=== PATIENT | female | born 1980 | race Caucasian/White ===

== ENCOUNTER → 2022-12-24 15:23 | Outpatient (BNVA) | payer BC, SELFPAY | PROVIDERS: Visit Provider Registered Nurse Neonatal Intensive Care | DX: M25.552 Pain in left hip (principal) | CPT/HCPCS: 73502 ==

== ENCOUNTER → 2023-01-17 09:59 | Outpatient (BNVA) | payer BC, MEDICAID, SELFPAY | PROVIDERS: PCP Family Medicine; Visit Provider Family Medicine | DX: D50.9 Iron deficiency anemia, unspecified (principal) | CPT/HCPCS: 80053; 81000; 82728; 83550; 84439; 84443; 85025 ==

== ENCOUNTER 2023-02-24 10:30 | Oncology outpatient (recurring) (ONCR) | payer BC, MEDICAID, SELFPAY ==
[2023-02-24 11:10] VITALS: BP 112/70; PULSE 80; RESP 18; TEMP 36.6; O2SAT 99
[2023-02-24] MEDS: sodium chloride 0.9% 250 ML 50 ML IV (11:20)
[2023-02-24] MEDS: iron sucrose 200 MG in sodium chloride 0.9% (100 ml) 100 ML 220 MG IV (11:23)
[2023-02-24 12:35] VITALS: BP 115/65; PULSE 63; RESP 18; TEMP 36.4; O2SAT 98
== END 2023-02-24 23:59 | disposition home or self-care (01) ==
PROVIDERS: PCP Family Medicine; Visit Provider Family Medicine
DX: D50.9 Iron deficiency anemia, unspecified (principal)
CPT/HCPCS: 96365; J1756; J7050

== ENCOUNTER 2023-03-10 10:30 | Oncology outpatient (recurring) (ONCR) | payer BC, MEDICAID, SELFPAY ==
[2023-03-03 10:23] VITALS: BP 122/80; PULSE 83; RESP 16; TEMP 36.7; O2SAT 99
[2023-03-03] MEDS: sodium chloride 0.9% 250 ML 75 ML IV (10:45)
[2023-03-03] MEDS: iron sucrose 200 MG in sodium chloride 0.9% (100 ml) 100 ML 220 MG IV (10:46)
[2023-03-03 11:31] VITALS: BP 97/67; PULSE 71; RESP 16; TEMP 36.6; O2SAT 99
[2023-03-10 11:20] VITALS: BP 107/69; PULSE 74; RESP 18; TEMP 36.4; O2SAT 99
[2023-03-10] MEDS: sodium chloride 0.9% 250 ML 50 ML IV (11:42)
[2023-03-10] MEDS: iron sucrose 200 MG in sodium chloride 0.9% (100 ml) 100 ML 220 MG IV (11:45)
[2023-03-10 12:35] VITALS: BP 106/62; PULSE 67; RESP 18; TEMP 36.4; O2SAT 100
== END 2023-03-27 23:59 | disposition home or self-care (01) ==
PROVIDERS: PCP Family Medicine; Visit Provider Family Medicine
DX: D50.8 Other iron deficiency anemias (principal)
CPT/HCPCS: 96365; J1756; J7050

== ENCOUNTER → 2023-03-28 16:15 | Outpatient (BNVA) | payer BC, MEDICAID, SELFPAY | PROVIDERS: PCP Family Medicine; Visit Provider Nurse Practitioner Family | DX: R06.00 Dyspnea, unspecified (principal) | CPT/HCPCS: 71046 ==

== ENCOUNTER 2023-10-26 12:11 | Outpatient (CLI) | payer BC, MEDICAID, SELFPAY ==
--- NOTE | 2023-10-26 12:18 | XR_ITS ---
WS: [id number] Exam: XR hand LT min 3V* [id number] Date/Time of Exam: 10/26/2023 12:18 PM Reason For Exam: Left hand contusion No fracture or dislocation. The joints are preserved. No soft tissue foreign bodies. IMPRESSION: 1. No acute fracture or other significant finding.
== END 2023-10-26 12:12 | disposition home or self-care (01) ==
LOC: RAD 12:11
PROVIDERS: PCP Family Medicine; Visit Provider Registered Nurse Neonatal Intensive Care
DX: S60.222A Contusion of left hand, initial encounter (principal); X58.XXXA Exposure to other specified factors, initial encounter
CPT/HCPCS: 73130

== ENCOUNTER 2023-11-15 12:43 | Outpatient (CLI) | payer BC, MEDICAID, SELFPAY ==
--- NOTE | 2023-11-15 12:50 | XR_ITS ---
WS: [id number] Left hand, 3 views, 11/15/2023 Clinical Data: 1st metacarpal injury Comparison: Left hand, 10/26/2023 Findings: No fractures or dislocations are seen. The soft tissues are unremarkable. The joint spaces are normal Impression: Negative left hand.
== END 2023-11-15 12:44 | disposition home or self-care (01) ==
LOC: RAD 12:45
PROVIDERS: PCP Family Medicine; Visit Provider Family Medicine
DX: M79.642 Pain in left hand; R30.0 Dysuria
CPT/HCPCS: 73130; 81000

== ENCOUNTER → 2024-03-28 14:29 | Outpatient (BNVA) | payer BC, MEDICAID, SELFPAY | PROVIDERS: PCP Family Medicine; Visit Provider Family Medicine | DX: D50.8 Other iron deficiency anemias (principal) | CPT/HCPCS: 80053; 82728; 83540; 83550; 85025 ==

== ENCOUNTER 2024-04-22 10:00 | Oncology outpatient (recurring) (ONCR) | payer BC, MEDICAID, SELFPAY ==
--- NOTE | 2024-04-03 10:00 | US_ITS ---
WS: [id number] RENAL ULTRASOUND HISTORY: bilateral kidney pain COMPARISON: None available. TECHNIQUE: 2-D and color Doppler imaging of the kidney submitted. Right kidney: 10.7 cm x 4.4 cm x 4.1 cm. Cortex: 0.9 cm Mild diffuse cortical thinning. Cyst in the mid kidney measures 1.9 x 1.7 x 1.5 cm. No hydronephrosis . Left kidney: 11.7 cm x 6.3 cm x 6.1 cm. Cortex: 1.3 cm Normal size kidney with no hydronephrosis. Tiny cortical cyst mid kidney measures 1.3 x 1.2 x 1.0 cm. Aorta: Normal. Urinary Bladder: Normal distention. US/US renal BI* [id number] IMPRESSION: 1. No renal obstruction. 2. Mild diffuse thinning of the RIGHT renal cortex. 3. Small bilateral simple renal cysts as described above.
[2024-04-22] MEDS: acetaminophen 325 mg Tablet 650 MG PO (11:26)
[2024-04-22] MEDS: sodium chloride 0.9% 500 ML 75 ML IV (11:28)
[2024-04-22] MEDS: diphenhydrAMINE 50 mg/mL SDV 1mL 25 MG IVP (11:51)
[2024-04-22 11:54] VITALS: BP 118/78; PULSE 90; RESP 18; TEMP 36.7; O2SAT 99
[2024-04-22] MEDS: iron dextran 25 MG in SYRINGE 1 EACH 30 MG IVP (12:07)
[2024-04-22] MEDS: iron dextran 975 MG in sodium chloride 0.9% 1,000 ML 250.75 MG IV (13:38)
[2024-04-22 17:05] VITALS: BP 100/65; PULSE 70; RESP 16; TEMP 36.2; O2SAT 94
== END 2024-04-27 23:59 | disposition home or self-care (01) ==
PROVIDERS: PCP Family Medicine; Visit Provider Family Medicine
DX: D50.9 Iron deficiency anemia, unspecified (principal); Z79.899 Other long term (current) drug therapy
CPT/HCPCS: 71046; 76770; 96365; 96366; 96375; J1200; J1750; J7030; J7040

== ENCOUNTER → 2024-04-24 14:27 | Outpatient (BNVA) | payer BC, MEDICAID, SELFPAY | PROVIDERS: PCP Family Medicine; Visit Provider Nurse Practitioner | DX: D50.8 Other iron deficiency anemias (principal) | CPT/HCPCS: 82962 ==

== ENCOUNTER 2024-06-05 11:33 | Emergency (ER) | payer BC, MEDICAID, SELFPAY ==
[2024-06-05 11:37] VITALS: BP 122/70; PULSE 87; RESP 18; TEMP 36.9; O2SAT 99; BMI 32.1
--- NOTE | 2024-06-05 12:35 | USCV_ITS ---
Tawny Mendes Age: 43 Gender: F : 1980 Exam Date: 06/05/2024 13:19 Ordering Phys: Criss Marsh MD Technologist: [place] [facility] [place]: lt leg pain and swelling PROCEDURES: Venous duplex imaging was performed in only the left lower extremity. The following venous structures were evaluated: common femoral vein, profunda vein, proximal portion of the greater saphenous vein, superficial femoral vein, and the popliteal vein. In addition, the posterior tibial and peroneal trunk were evaluated. FINDINGS: Normal 2-D Doppler and augmentation and compressibility throughout the lower extremity venous structures. Additional imaging through the proximal calf veins also reveals no thrombus. Limited evaluation of the greater saphenous vein is patent with no thrombus. CONCLUSIONS No evidence of left lower extremity DVT. Cj Hassan MD (Electronically Signed) Final Date: 05 June 2024 15:03 S
--- NOTE | 2024-06-05 13:02 | ED_ITS ---
HPI - Extremity Problem General: Chief complaint: Extremity Injury, Lower Stated complaint: pain Left leg Time Seen by Provider: 06/05/24 13:01 Source: patient Mode of arrival: ambulatory Limitations: no limitations History of Present Illness: Patient is a 43-year-old female presents to ED today with a complaint of left leg pain over the past 1 to 2 days. She states pain initially started as a heel pain and has now noticed some pain in her calf as well as her upper medial thigh. She was reportedly seen at the walk-in clinic by Dr. Solomon and referred to the emergency department for ultrasound and DVT rule out. Patient does have known varicose veins. She is reportedly scheduled to see a vein clinic next week. She feels like her left lower extremity was swollen recently but feels like this is improved upon presentation to the emergency department. She has no complaints of chest pain, shortness of breath, or difficulty breathing. No previous history of DVT/PE. MD Complaint: extremity pain and extremity swelling Onset (ago): day(s) Pain Consistency: constant Location: left and lower extremity Radiation: none Relieving factors: nothing Exacerbating factors: nothing Associated symptoms: Reports no associated symptoms; Deny chest pain, fever(s) or rash Related Data Home Medications Medication Instructions Recorded Confirmed loratadine 10 mg tablet (Claritin) 10 mg PO DAILY 03/28/24 06/05/24 Previous Rx's Medication Instructions Recorded EpiPen 2-Phil 0.3 mg/0.3 mL 0.3 mg (0.3 mL) IM Q10M PRN 01/17/23 injection, auto-injector anaphylaxis #2 ea (epinephrine) Allergies Allergy/AdvReac Type Severity Reaction Status Date / Time aspirin Allergy ALGY-Anaphy Verified 06/05/24 11:02 laxis iron Allergy ALGY-Difficulty Verified 06/05/24 11:50 Breathing latex Allergy ALGY-Bliste Verified 06/05/24 11:02 r morphine Allergy ALGY-Anaphy Verified 06/05/24 11:02 laxis NSAIDS (Non-Steroidal Allergy ALGY-Anaphy Verified 06/05/24 11:02 Anti-Inflamma laxis shellfish derived Allergy ALGY-Anaphy Verified 06/05/24 11:02 laxis tramadol Allergy ALGY-Anaphy Verified 06/05/24 11:02 laxis Review of Systems Const: Denies: fever(s) Card: Denies: chest pain, palpitations, lightheadedness, syncope or pre- syncope Resp: Denies: dyspnea, wheezing, pain on inspiration or hemoptysis Musc: Reports: extremity pain and extremity swelling; Denies: neck pain, back pain, joint pain or joint swelling Skin/Breast: Denies: rash Neuro: Denies: numbness in extremities, weakness in extremities, sensory changes or difficulty walking [facility] PFSH: Medical History Spider vein of left lower extremity MRSA (methicillin resistant staph aureus) culture positive Pain Medullary sponge kidney Anemia PTSD (post-traumatic stress disorder) TBI (traumatic brain injury) Surgical History H/O knee surgery H/O: Hx of cholecystectomy H/O eye surgery Family History Mother Diabetes Hypertension Father Cancer Social History Smoking and tobacco/nicotine status: unknown if used tobacco/nicotine Quit status (tobacco/nicotine): not considering quitting Second hand smoke exposure: No Alcohol intake: former Substance/Drug Use: never Physical Exam Const: COMMON NORMALS: no acute distress, average body habitus, patient oriented x3, no limitations, healthy appearing, alert and well nourished Resp: COMMON NORMALS: normal respiratory effort and clear to auscultation bilaterally AUSCULTATION: clear to auscultation bilaterally Cardio: COMMON NORMALS: regular rate and regular rhythm RATE: regular rate RHYTHM: regular rhythm Extremity: COMMON NORMALS: capillary refill normal, no joint enlargement, no clubbing, cyanosis or edema and no pedal edema GENERAL: Yes normal exam except as noted LEFT LOWER EXTREMITY: Yes upper leg and Yes lower leg OTHER: I do not appreciate any obvious swelling to the left lower extremity when compared to right. Distal pulses, cap refill, and sensation are all intact. Negative Homans. She does have mild tenderness to palpation of the left calf as well as left popliteal and left medial thigh. Minor varicose veins noted. Neuro: COMMON NORMALS: patient oriented x3, moves all extremities, no focal motor deficits and no sensory deficits noted SENSORIUM/ORIENTATION: Yes alert Skin: COMMON NORMALS: no rashes or lesions noted GENERAL SKIN EXAM: no rashes or lesions noted Course Vital Signs: Vital signs: Vital Signs Temperature 98.5 F 06/05/24 11:37 Pulse Rate 84 06/05/24 14:00 Respiratory Rate 18 06/05/24 14:00 Blood Pressure 123/71 06/05/24 13:30 Pulse Oximetry 98 06/05/24 14:00 Oxygen Delivery Me thod Room Air 06/05/24 14:00 MDM - Extremity (Nontraumatic) Medical Decision Making Prelim U/S report negative for DVT. Patient was instructed to follow-up with her primary care provider for continued evaluation of her leg pain. Medical Records I reviewed the patient's medical records. XR interpretation done by ED provider, pending radiology final review (prelim from US tech negative) Discharge Plan Discharge Patient Disposition: Home Clinical Impression: Acute pain of left lower extremity Condition: Stable Prescriptions: No Action epinephrine [EpiPen 2-Phil] 0.3 mg/0.3 mL auto-injector 0.3 mg IM Q10M PRN (Reason: anaphylaxis) Qty: 2 2RF Rx Instructions: for 2 doses loratadine [Claritin] 10 mg tablet 10 mg PO DAILY Discharge Orders: Discharge ED (Routine); Ordered 06/05/24 Ordered By: Nora Cordova Referrals: Chaitanya Del Cid MD [Primary Care Provider] - Coding Level of Care Code ED Nuclear Waste Management Engineer for Ilana Alarcon
[2024-06-05 13:04] VITALS: BP 123/71; PULSE 85; RESP 16; O2SAT 96
[2024-06-05 13:30] VITALS: BP 123/71; PULSE 81; O2SAT 97
[2024-06-05 14:00] VITALS: PULSE 84; RESP 18; O2SAT 98
[2024-06-05 14:29] VITALS: BP 97/65; PULSE 66; O2SAT 98
== END 2024-06-05 14:30 | disposition home or self-care (01) ==
PROVIDERS: Emergency Provider Physician Assistant; PCP Family Medicine
DX: M79.605 Pain in left leg (principal)
CPT/HCPCS: 93971; 99284

== ENCOUNTER 2024-07-19 09:46 | Outpatient (CLI) | payer BC, MEDICAID, SELFPAY ==
--- NOTE | 2024-07-19 09:56 | USCV_ITS ---
Tawny Mendes Age: 43 Gender: F : 1980 Exam Date: 07/19/2024 10:55 Ordering Phys: Herminia Alvarez Technologist: [place] [facility] [place]: HISTORY: PROCEDURES: FINDINGS: The veins were found to be easily compressible with spontaneous blood flow. Non pulsatile flow pattern. No evidence of any significant venous insufficiency In the small saphenous veins on the left side were not visualized CONCLUSIONS 1. No evidence of DVT or superficial vein thrombosis, in the above- mentioned identifiable veins 2. No significant venous insufficiency 3. Small to medium caliber superficial veins bilaterally 4. The small saphenous veins of the left side were not visualized Dr Sydney Varghese MD [facility] (Electronically Signed) Final Date: 25 July 2024 07:55 S
== END 2024-07-19 09:47 | disposition home or self-care (01) ==
LOC: RAD 09:48
PROVIDERS: PCP Family Medicine; Visit Provider Nurse Practitioner
DX: I83.893 Varicose veins of bilateral lower extremities with other complications (principal)
CPT/HCPCS: 93970

== ENCOUNTER → 2024-08-14 15:53 | Outpatient (BNVA) | payer BC, SELFPAY | PROVIDERS: PCP Family Medicine; Visit Provider Family Medicine | DX: D50.8 Other iron deficiency anemias (principal) | CPT/HCPCS: 82746; 83550; 85025 ==

== ENCOUNTER → 2024-09-13 09:27 | Outpatient (BNVA) | payer BC, SELFPAY | PROVIDERS: PCP Family Medicine; Referring Provider Family Medicine; Visit Provider Nurse Practitioner | DX: M17.12 Unilateral primary osteoarthritis, left knee; M23.52 Chronic instability of knee, left knee; S83.412A Sprain of medial collateral ligament of left knee, initial encounter; X58.XXXA Exposure to other specified factors, initial encounter; Z46.89 Encounter for fitting and adjustment of other specified devices | CPT/HCPCS: 73560; 73565 ==

== ENCOUNTER 2024-11-22 09:30 | Oncology outpatient (recurring) (ONCR) | payer BC, MEDICAID, SELFPAY ==
--- NOTE | 2024-11-22 09:30 | MR_ITS ---
WS: [id number] MRI LEFT KNEE HISTORY: M17.12 - Unilateral primary osteoarthritis, left knee, history of prior meniscal repair. COMPARISON: 09/13/2024 radiograph Anterior cruciate ligament: Intact. Posterior cruciate ligament: Intact. Medial collateral ligament: Intact. Posterior lateral corner structures: Intact. Medial menisci: No acute tear. There is a very tiny defect involving the posterior horn of the medial meniscus with blunting. This may be the site of a prior meniscal repair. Lateral meniscus: Intact. Normal signal, size and shape. Extensor mechanism: Distal quadriceps tendon and patellar tendons are intact. Fluid and soft tissue: No joint effusion. No Camarena's cyst. Osseous and articular structures: Patellofemoral compartment: Normal. Medial compartment: Mild narrowing of the medial compartment. No fracture or marrow edema. Lateral compartment: Mild narrowing with no fracture or marrow edema. Cartilage is preserved. Small amount of fluid along the popliteus tendon. No tear identified. MR/MR knee LT wo con* [id number] IMPRESSION: 1. No ACL or acute meniscal tear. 2. Small defect posterior horn of the medial meniscus may be the site of the p rior meniscal repair. 3. No marrow edema or fracture.
== END 2024-11-25 23:59 | disposition home or self-care (01) ==
LOC: RAD 11-23 → ONCMED 11-25 09:04
PROVIDERS: PCP Family Medicine; Visit Provider Nurse Practitioner
DX: Z53.9 Procedure and treatment not carried out, unspecified reason; M17.12 Unilateral primary osteoarthritis, left knee; M23.50 Chronic instability of knee, unspecified knee
CPT/HCPCS: 73721

== ENCOUNTER 2024-12-06 08:51 | Oncology outpatient (recurring) (ONCR) | payer BC, MEDICAID, SELFPAY ==
[2024-12-06 09:26] VITALS: BP 124/76; PULSE 75; RESP 16; TEMP 36.7; O2SAT 98
[2024-12-06] MEDS: ferric derisomaltose 1,000 MG in sodium chloride 0.9% (100 ml) 100 ML 330 MG IV (10:13)
[2024-12-06 11:14] VITALS: BP 117/77; PULSE 77; RESP 16; TEMP 36.5; O2SAT 99
== END 2024-12-25 23:59 | disposition home or self-care (01) ==
LOC: ONCMED 08:51
PROVIDERS: PCP Family Medicine; Visit Provider Nurse Practitioner
DX: D50.9 Iron deficiency anemia, unspecified (principal); Z79.899 Other long term (current) drug therapy
CPT/HCPCS: 96365; J1437

== ENCOUNTER → 2025-03-31 11:04 | Outpatient (BNVA) | payer BC, MEDICAID, SELFPAY | PROVIDERS: PCP Family Medicine; Visit Provider Nurse Practitioner | DX: M16.11 Unilateral primary osteoarthritis, right hip (principal) | CPT/HCPCS: 73502 ==

== ENCOUNTER 2025-03-31 20:24 | Emergency (ER) | payer BC, MEDICAID, SELFPAY ==
--- OUTSIDE RECORDS SUMMARY | 2024-05-31 08:42 | XMS_ITS | Continuity of Care Document ---
Author Name [facility] Organization [facility] Care Team Providers Care Detonator Assembler Name Role Phone [facility] Unavailable Unavailable Problems Combined list of problems from [facility] and [facility] facilities. It does not include entries that were removed or entered in error. Problem Status Onset Date Problem Type Date of Resolution Comments Source Diagnosis: ICD-10-CM Z71.89 Other specified counseling Active Diagnosis [facility] Allergies, Adverse Reactions, Alerts Combined list of allergies from [facility] and [facility] facilities. It does not include entries that were removed or entered in error. Substance Category Reaction Severity Reaction type Status Date Reported Comments Source ASPIRIN RELATED MEDICATIONS Propensity to adverse reactions to drug (finding) Anaphylaxis active 2 [facility] LATEX GLOVE Propensity to adverse reactions to drug (finding) Eruption active 2 [facility] MORPHINE Propensity to adverse reactions to drug (finding) Anaphylaxis active 2 [facility] NONSTEROIDAL ANTI-INFLAMM ATORY Propensity to adverse reactions to drug (finding) Anaphylaxis active 2 [facility] SERTRALINE Propensity to adverse reactions to drug (finding) Syncope active 2 [facility] SHELLFISH Propensity to adverse reactions to food (finding) Anaphylaxis active 2 [facility] TRAMADOL Propensity to adverse reactions to drug (finding) Dyspnea active 2 [facility] Encounters Combined list of: 1) Encounters from [facility] facilities going backup to the last 18 months, not all [place] inpatient encounters are included; 2) Encounters from the [facility] facilities going backup to 280 months. Location Location Details Encounter Type Encounter Number Reason For Visit Attending Provider ADM Date DC Date Status Disposition Source [facility] HC PRO PHONE CALL 21-30 MIN [id number] Diagnos is: ICD-10- CM Z71.89 Other specifi ed credit counselor ing CON COLON 04/26 [facility] Outpatient Encounter [id number] CON COLON 05/31 [facility]
[2025-03-31 20:26] VITALS: BP 137/69; PULSE 101; RESP 16; TEMP 36.6; O2SAT 99
--- NOTE | 2025-03-31 20:41 | W.ED.ALLEREA ---
HPI - Allergic Reaction General: Chief complaint: Allergic Reaction Stated complaint: Allergic Reaction Time Seen by Provider: 03/31/25 20:34 History of Present Illness: HPI narrative: Patient is a 44-year-old female that presented to ED with allergic reaction. He took her first dose of meloxicam at 3 PM today, and over the course of the last 3 hours has noted increasing itching to her face, and the feeling that her tongue is thicker. She is swallowing and talking without issues. Denies shortness of breath. She did immediately take a Claritin/loratidine at home. She does have an EpiPen but did not administer it, notes that it was . Her itching is included to the face only. Related Data Home Medications ?Medication ?Instructions ?Recorded ?Confirmed loratadine 10 mg tablet (Claritin) 10 mg PO DAILY 03/28/24 03/31/25 albuterol sulfate 90 mcg/actuation 2 puff inhalation Q6H PRN 08/12/24 03/31/25 aerosol inhaler Previous Rx's ?Medication ?Instructions ?Recorded EpiPen 2-Phil 0.3 mg/0.3 mL 0.3 mg (0.3 mL) IM Q10M PRN 01/17/23 injection, auto-injector anaphylaxis #2 ea (epinephrine) fluticasone propionate 50 1 spray intranasal BID PRN nasal 08/31/24 mcg/actuation nasal congestion #16 mL spray,suspension (Allergy Relief (fluticasone)) levocetirizine 5 mg tablet 5 mg PO DAILY PRN congestion #60 08/31/24 tabs left hinged knee brace #1 ea 09/13/24 lorazepam 1 mg tablet 1 mg PO .COMPLEX PRN anxiety #2 10/29/24 tabs epinephrine 0.3 mg/0.3 mL 0.3 mg (0.3 mL) IM Q10M PRN 03/31/25 injection, auto-injector (EpiPen anaphylaxis #2 ea 2-Phil) famotidine 40 mg tablet 40 mg PO BID #14 tabs 03/31/25 meloxicam 7.5 mg tablet 7.5 mg PO DAILY #30 tabs 03/31/25 methylprednisolone 4 mg tablets in See Rx Instructions PO .COMPLEX 03/31/25 a dose pack (Medrol (Phil)) #21 ea Allergies Allergy/AdvReac Type Severity Reaction Status Date / Time iron (From Venofer) Allergy Unknown Unknown Verified 03/31/25 20:31 iron dextran complex (From Allergy Unknown Unknown Verified 03/31/25 20:31 Infed) aspirin Allergy ALGY-Anaphy Verified 03/31/25 20:31 laxis Iodinated Contrast Media Allergy ALGY-Anaphy Verified 03/31/25 20:31 laxis latex Allergy ALGY-Bliste Verified 03/31/25 20:31 r meloxicam Allergy ALGY-Anaphy Verified 03/31/25 20:47 laxis morphine Allergy ALGY-Anaphy Verified 03/31/25 20:31 laxis NSAIDS (Non-Steroidal Allergy ALGY-Anaphy Verified 03/31/25 20:31 Anti-Inflamma laxis shellfish derived Allergy ALGY-Anaphy Verified 03/31/25 20:31 laxis tramadol Allergy ALGY-Anaphy Verified 03/31/25 20:31 laxis Review of Systems Const: Denies: fever(s) or chills Eyes: Denies: change in vision or blurry vision ENMT: Reports: swelling of lips/tongue; Denies: throat pain, odynophagia or mouth pain Card: Denies: chest pain or palpitations Resp: Denies: dyspnea, productive cough or non-productive cough : Denies: flank pain or difficulty voiding Musc: Denies: neck pain or back pain Skin/Breast: Reports: pruritus and erythema Neuro: Denies: headache(s) or numbness in extremities Rodriguez/Lymph: Denies: easy bruising or easy bleeding PFS ED PFSH: Medical History (Updated 03/31/25 @ 20:50 by MANN Mcclain) Tear of meniscus of left knee Psychiatric care Spider vein of left lower extremity MRSA (methicillin resistant staph aureus) culture positive Pain Medullary sponge kidney Anemia PTSD (post-traumatic stress disorder) TBI (traumatic brain injury) Surgical History H/O knee surgery H/O: Hx of cholecystectomy H/O eye surgery Family History Mother Diabetes Hypertension Father Cancer Social History Smoking and tobacco/nicotine status: current every day tobacco/nicotine user cigarettes [ Other cigarette details: 3/4 PPD, 15PY (1/2 PPD avg)] Quit status (tobacco/nicotine): not considering quitting Second hand smoke exposure: No Alcohol intake: former Substance/Drug Use: never Physical Exam Const: COMMON NORMALS: patient oriented x3 HENMT: COMMON NORMALS: normocephalic HEAD & SCALP: normocephalic Neck/C-Spine: COMMON NORMALS: full ROM, no lymphadenopathy and supple Resp: COMMON NORMALS: normal respiratory effort, No retractions and clear to auscultation bilaterally AUSCULTATION: clear to auscultation bilaterally Cardio: COMMON NORMALS: regular rate and regular rhythm RATE: regular rate RHYTHM: regular rhythm GI: COMMON NORMALS: Normal to inspection, nondistended, normoactive bowel sounds present and Soft to palpation PALPATION: Yes Soft to palpation : COMMON NORMALS: Yes no CVA tenderness BLADDER/KIDNEY EXAM: Yes no CVA tenderness Back/Pelvis: COMMON NORMALS: no CVA tenderness Extremity: COMMON NORMALS: normal to inspection, full ROM and capillary refill normal Neuro: COMMON NORMALS: patient oriented x3, CN's II-XII intact bilaterally and moves all extremities Skin: GENERAL SKIN EXAM: erythema (face) Course Vital Signs: Vital signs: Vital Signs Temperature 97.9 F 03/31/25 20:26 Pulse Rate 101 H 03/31/25 20:26 Respiratory Rate 16 03/31/25 20:26 Blood Pressure 137/69 03/31/25 20:26 Pulse Oximetry 99 03/31/25 20:26 Oxygen Delivery Me thod Room Air 03/31/25 20:26 MDM - Allergic Reaction Medical Decision Making Patient is 44-year-old female that took her first meloxicam at 1500 today, and started having allergic reaction approximately 2 hours after this. She took a Claritin at home, which seemed to help the reaction, however came to the ED for further evaluation. She has some redness around her bilateral cheeks, feels like her tongue is wider, however this is not appreciated on physical examination other than her cheek redness. She is not having any speech impediments. Her lungs are clear. EpiPen has been sent to the pharmacy, she has been given famotidine, prednisone here. She has been advised to take Benadryl if needed as well. Patient has an aversion to IM use, therefore would utilize p.o. since patient was speaking full sentences. No radiology studies performed this visit Discharge Plan Discharge Patient Disposition: Home Clinical Impression: Allergic reaction Qualifiers: Encounter type: initial encounter Qualified Code(s): T78.40XA - Allergy, unspecified, initial encounter Condition: Stable Prescriptions: New methylprednisolone [Medrol (Phil)] 4 mg tablets,dose pack See Rx Instructions .ROUTE .COMPLEX Qty: 21 0RF Rx Instructions: for 6 days epinephrine [EpiPen 2-Phil] 0.3 mg/0.3 mL auto-injector 0.3 mg IM Q10M PRN (Reason: anaphylaxis) Qty: 2 0RF Rx Instructions: for 2 doses famotidine 40 mg tablet 40 mg PO BID Qty: 14 0RF No Action (DME) left hinged knee brace See Rx Instructions .Route .MEDSUPPLY Qty: 1 0RF Rx Instructions: As directed fluticasone propionate [Allergy Relief (fluticasone)] 50 mcg/actuation spray,suspension 1 spray intranasal BID PRN (Reason: nasal congestion) Qty: 16 0RF Rx Instructions: administer into each nostril levocetirizine 5 mg tablet 5 mg PO DAILY PRN (Reason: congestion) Qty: 60 0RF lorazepam 1 mg tablet 1 mg PO .COMPLEX PRN (Reason: anxiety) Qty: 2 0RF Rx Instructions: Take 1 tab 45 minutes to an hour prior to MRI. Bring second tab with you. Take immediately prior to MRI, if needed. epinephrine [EpiPen 2-Phil] 0.3 mg/0.3 mL auto-injector 0.3 mg IM Q10M PRN (Reason: anaphylaxis) Qty: 2 2RF Rx Instructions: for 2 doses loratadine [Claritin] 10 mg tablet 10 mg PO DAILY albuterol sulfate 90 mcg/actuation HFA aerosol inhaler 2 puff inhalation Q6H PRN meloxicam 7.5 mg tablet 7.5 mg PO DAILY Qty: 30 0RF Discharge Orders: Discharge ED (Routine); Ordered 03/31/25 Ordered By: Maria M Ovalles Referrals: Chaitanya Del Cid MD [Primary Care Provider, Family Practice] Discharge Diet: Usual diet Discharge Activity: Resume usual activity Patient Instructions: Allergic Reaction, Patient Portal & Haley Instructions Activity Restrictions/Additional Instructions: Avoid any further contact with meloxicam. Prescription called to pharmacy: Famotidine 40 mg twice daily, Medrol Dosepak take as directed, EpiPen 2 pack. Obtain these early in the morning Continue: Claritin/loratidine twice daily x 1 week Utilize: Benadryl 50 mg every 6 hours as needed for itching/allergy symptoms. Return to ED for worsening shortness of breath, worsening rash, worsening symptoms of allergic reaction. Is important follow-up with your doctor regarding today's visit. Please call your doctor tomorrow for an ER follow-up. Print Language: Lebanese Coding Level of Care Code ED Police Booking Officer for Ilana Alarcon
[2025-03-31 21:38] VITALS: BP 115/72; PULSE 79; RESP 16; O2SAT 98
== END 2025-03-31 21:26 | disposition home or self-care (01) ==
PROVIDERS: Emergency Provider Physician Assistant; PCP Family Medicine
DX: T78.40XA Allergy, unspecified, initial encounter (principal); F17.210 Nicotine dependence, cigarettes, uncomplicated; X58.XXXA Exposure to other specified factors, initial encounter
CPT/HCPCS: 99283; J7512; J9999; Q0163

== ENCOUNTER → 2025-06-12 08:41 | Outpatient (BNVA) | payer BC, MEDICAID, SELFPAY | PROVIDERS: PCP Family Medicine; Visit Provider Family Medicine | DX: D50.8 Other iron deficiency anemias (principal) | CPT/HCPCS: 80053; 82746; 83550; 85025 ==

== ENCOUNTER → 2025-07-07 15:16 | Outpatient (BNVA) | payer BC, MEDICAID, SELFPAY | PROVIDERS: PCP Family Medicine; Visit Provider Nurse Practitioner | DX: M67.912 Unspecified disorder of synovium and tendon, left shoulder (principal); M25.512 Pain in left shoulder; M25.612 Stiffness of left shoulder, not elsewhere classified | CPT/HCPCS: 73030 ==

== ENCOUNTER → 2025-07-11 11:20 | Outpatient (BNVA) | payer BC, MEDICAID, SELFPAY | PROVIDERS: PCP Family Medicine; Visit Provider Specialist | DX: Z53.9 Procedure and treatment not carried out, unspecified reason (principal) | CPT/HCPCS: 77002 ==

== ENCOUNTER 2025-08-11 13:43 | Outpatient (CLI) | payer BC, MEDICAID, SELFPAY ==
--- NOTE | 2025-08-11 13:45 | MR_ITS ---
WS: [id number] MRI LEFT SHOULDER HISTORY: Shoulder pain. Decreased ROM. COMPARISON: Radiograph 07/07/2025 TECHNIQUE: Multiplanar sequences of the shoulder joint are submitted. Mild AC joint arthritis. There is a very small amount of fluid in the subdeltoid bursa. No significant subacromial impingement. No os acromion. Normal position of the biceps tendon in the bicipital groove. Trace slightly high riding humeral head. Mild narrowing of the glenohumeral joint. No fracture or marrow edema. No rotator cuff muscle atrophy or edema. No rotator cuff tendon tears. There is a small amount of fluid in the rotator cuff interval. There is a small amount of increased T2 signal in the biceps tendon through the rotator cuff interval. Nonvisualization of the coracohumeral ligament near the rotator cuff interval. No labral tear. MR/MR shoulder LT wo con* [id number] IMPRESSION: 1. No tendon labral tear identified. 2. There is increased T2 signal in the rotator cuff interval and the biceps te ndon within the rotator cuff interval. No full-thickness tear. Small amount of fluid in the subdeltoid bursa. Nonvisualization of the coracohumeral ligament. 3. No muscle atrophy or edema.
== END 2025-08-11 13:44 | disposition home or self-care (01) ==
LOC: RAD 13:43
PROVIDERS: PCP Family Medicine; Visit Provider Nurse Practitioner
DX: M19.012 Primary osteoarthritis, left shoulder (principal); M25.612 Stiffness of left shoulder, not elsewhere classified
CPT/HCPCS: 73221